=== PATIENT | female | born 1980 | race African-American/Black ===

== ENCOUNTER 2017-07-18 00:34 | Observation (INO) | payer MEDICAID ==
[~2017-07-18] VITALS: Ht 162.6 cm; Wt 70.8 kg
== END 2017-07-18 01:45 | disposition home or self-care (01) ==
LOC: L&D 00:34
PROVIDERS: ADMIT Specialist; ATTEND Specialist
DX: O26.893 Other specified pregnancy related conditions, third trimester (principal); R10.9 Unspecified abdominal pain; Z3A.39 39 weeks gestation of pregnancy
CPT/HCPCS: G0378 ×2

== ENCOUNTER 2017-07-27 17:54 | Observation (INO) | payer MEDICAID ==
[~2017-07-27] VITALS: Ht 162.6 cm; Wt 69.9 kg
== END 2017-07-27 18:53 | disposition home or self-care (01) ==
LOC: L&D 17:54
PROVIDERS: ADMIT Specialist; ATTEND Specialist
DX: O62.9 Abnormality of forces of labor, unspecified (principal); O48.1 Prolonged pregnancy; Z3A.41 41 weeks gestation of pregnancy
CPT/HCPCS: 99281; G0378